=== PATIENT | female | born 1935 | race Caucasian/White ===

== ENCOUNTER 2017-01-13 17:30 | Inpatient (IN) | payer MEDICARE, BC ==
[~2017-01-13] VITALS: Ht 160 cm; Wt 80.3 kg
--- NOTE | ~2017-01-13 | CON ---
PATIENT'S NAME: ASHLEY PAREDES [facility] AGE: 81 Y [address] ROOM: [place] [address] [facility]ATION: [facility] ADMIT DATE: 01/13/2017 Consultation DISCHARGE DATE: FAMILY PHYSICIAN: Harley Rodriguez MD ATTENDING PHYSICIAN: Kevyn Watkins REFERRING PHYSICIAN: KEYONA DELAROSA MD CHIEF COMPLAINT: I was asked to evaluate patient with thrombocytopenia for further evaluation and treatment. HISTORY OF PRESENT ILLNESS: Ashley Paredes is an 81-year-old female, who was transferred from [place] to [facility] on 01/13/2017 for further evaluation of stroke symptoms with confusion, dysarthria, in the setting of abdominal distress and diarrhea, felt to be related to dehydration, and she was admitted to [place], and a CT scan at that time did demonstrate low-density lesion in the right cerebellum concerning for stroke, and because of this, she was transferred. Since being admitted to the hospital, she had been treated for UTI, and she has been feeling better over the days. She has previously been on anticoagulation for atrial fibrillation and cardiac stents which were performed in September and because of noted thrombocytopenia, consideration for changing anticoagulation from Plavix to aspirin were considered. Additionally, workup was requested to see if any etiology could be identified. During this hospital stay, the patient also had a CT scan of the abdomen and pelvis which demonstrated a questionable left renal lesion of 4 x 5 cm concerning for infection versus tumor, and a CT angiogram which was negative without pulmonary embolism. Of note, the patient was noted to have some bright red blood per rectum and recommendations for outpatient evaluation has been placed. PAST MEDICAL HISTORY: Includes paroxysmal atrial fibrillation, on chronic anticoagulation; coronary artery disease, status post stenting in September 2016; hypertension; chronic renal disease stage 3; hyperlipidemia; gastroesophageal reflux disease; osteoarthritis; hyperuricemia; and insomnia. HOME MEDICATIONS: Include: 1. Allopurinol. 2. Eliquis. 3. Lotensin. 4. Zebeta. 5. Celebrex. 6. Plavix. 7. MegaRed. PATIENT'S NAME: ASHLEY PAREDES [facility] AGE: 81 Y [address] ROOM: [place] [address] LOCATION: [facility] ADMIT DATE: 01/13/2017 Consultation DISCHARGE DATE: FAMILY PHYSICIAN: Harley Rodriguez MD ATTENDING PHYSICIAN: Kevyn Watkins 8. Melatonin. 9. Multivitamin. 10. Simvastatin. 11. In the hospital, she was placed on Zosyn. FAMILY HISTORY: The patient's father had passed from cancer at 66 years of age. Mother passed of an RI at 79 and brother at 67 with COPD. SOCIAL HISTORY: The patient lives in [place]. She does not drink, does not smoke, and she is . PHYSICAL EXAMINATION: VITAL SIGNS: Blood pressure 139/63, pulse 77, respirations 12, and a temp of 98.5. GENERAL: The patient appears quite comfortable. No apparent distress. Speech seems to be normal. HEENT: Pupils are equal, round, and reactive to light. Extraocular muscles are intact. Oral mucosa is moist and pink without lesions. NECK: Without adenopathy as is the axillary region. HEART: Regular without significant murmurs appreciated. LUNGS: Clear to auscultation without wheezing, without rhonchi. ABDOMEN: Bowel sounds are positive. No gross organomegaly and no masses appreciated. EXTREMITIES: Without cyanosis, clubbing, or edema. LABORATORY DATA: Includes a CBC with a white blood cell count 6, hemoglobin 8.5, and platelets 122,000. Electrolytes were normal with a BUN and creatinine of 14 and 0.9 respectively, albumin 2.4, total protein 6.6, and globulin 4.2. Alkaline phosphatase was 73, AST 40, and ALT was 37. Iron studies included iron of 22, percent saturation of 11, TIBC of 194, and a ferritin of 201. Of note, on admission, the hemoglobin was 9 and platelets were 65,000 and have steadily improved since that time. IMPRESSION AND PLAN: Ashley Paredes is an 81-year-old female, admitted with a recent stroke as well as urinary tract infection, noted to have thrombocytopenia and anemia during her hospital stay. I will add vitamin B12, folate, and TSH for further evaluation of the anemia as well as the thrombocytopenia, but the anemia appears to be from the iron studies most consistent with mild iron deficiency as well as anemia of chronic disease. She has been noted to have bright red blood per rectum and reportedly has hemorrhoids which may account for this and has been undergoing GI evaluation as an outpatient. The thrombocytopenia may be PATIENT'S NAME: ASHLEY PAREDES [facility] AGE: 81 Y [address] ROOM: [facility] [place], [place] [address] [place] [facility] [place]MIT DATE: 01/13/2017 Consultation DISCHARGE DATE: FAMILY PHYSICIAN: Harley Rodriguez MD ATTENDING PHYSICIAN: Kevyn Watkins related to vitamin deficiencies and more alternatively to the recent urinary tract infection. The platelets have been improving steadily since admission and my thoughts would be to follow her up in several weeks in my [facility] in [place] to verify resolution of the thrombocytopenia. If persistent thrombocytopenia is noted, then bone marrow biopsy certainly may be reasonable, and we will discuss that with her at that time. MD ERICA MCMAHON/anu /[id number] d: 01/19/17 0153 t: 02/11/17 1101, CONSULTATION REPORT
--- NOTE | ~2017-01-13 | CON ---
PATIENT'S NAME: EVANGELINA PAREDES [facility] AGE: 81 Y [address] ROOM: [address] [address] LOCATION: [facility] ADMIT DATE: 01/13/2017 Consultation DISCHARGE DATE: FAMILY PHYSICIAN: Harley Rodriguez MD ATTENDING PHYSICIAN: Kevyn Watkins REFERRING PHYSICIAN: KEYONA DELAROSA MD REFERRING PHYSICIAN: Dr. Hsu. REASON FOR CONSULT: Elevated troponin and coronary artery disease. HISTORY OF PRESENT ILLNESS: Ms. Paredes is a pleasant 81-year-old female with history of coronary artery disease, status post coronary artery bypass graft about 10 years ago and status post percutaneous intervention about 3 months ago. The patient stated that she had been having diarrhea for 3 days with 15 to 20 loose stools per day. The patient stated that she was briefly unresponsive and she was taken to local hospital in [place]. She was given IV fluids, following which she recovered her consciousness and then she was transferred here for further management. The patient stated that she has been feeling shortness of breath for last 3 months and she had percutaneous intervention done at [facility]. She denied any improvement in symptoms following the percutaneous intervention and continues to remain short on breath on exertion. The patient stated that presently, she gets short of breath on walking about 1 to 1-1/2 block with no recent change in symptoms. She denied any chest pain. Has dry cough. No history of fever. Denied any urinary symptoms. REVIEW OF SYSTEMS: The patient has chronic mild diminution vision with no recent change. No history of dysphagia. No history of nausea or vomiting. No history of fever. No history of expectoration though she has dry cough. History of diarrhea is present. No history of urinary symptoms. The patient stated she is not very active physically; however, she takes care of herself and does bowling and plays cards. PAST MEDICAL HISTORY: The patient has past medical history of coronary artery disease, status post coronary artery bypass graft about 10 years ago; status post permanent pacemaker placement 1 year ago, status post percutaneous intervention of right coronary artery about 3 months ago, history of cholecystectomy and appendectomy and history of hip replacement. PERSONAL HISTORY: Nonsmoker. Nonalcoholic. PATIENT'S NAME: EVANGELINA PAREDES [facility] AGE: 81 Y [address] ROOM: [id number] [place], [place] [address] LOCATION: [facility] ADMIT DATE: 01/13/2017 Consultation DISCHARGE DATE: FAMILY PHYSICIAN: Harley Rodriguez MD ATTENDING PHYSICIAN: Kevyn Watkins FAMILY HISTORY: Her mother had coronary artery disease. SOCIAL HISTORY: The patient lives with her grandson. CURRENT MEDICATIONS: Her current medications include: 1. Pantoprazole. 2. Bisoprolol 20 mg daily. 3. Lisinopril 5 mg daily. 4. Allopurinol 300 mg daily. 5. Apixaban 5 mg b.i.d. 6. Ceftriaxone. 7. Plavix 75 mg p.o. daily. 8. Atorvastatin 40 mg daily. PHYSICAL EXAMINATION: GENERAL: On examination, she is awake, alert, and oriented and in no distress. VITAL SIGNS: Her pulse rate is 71 beats per minute, respiratory rate 18 per minutes, temperature 98.3, blood pressure 103/58. HEENT: Her head is atraumatic and normocephalic. Tongue is moist. NECK: No significant jugular venous distention is present. CARDIOVASCULAR: S1 and S2 are audible. They are irregular in rate and rhythm. Grade 3/6 ejection systolic murmur is audible in the left parasternal area. RESPIRATORY: Bilateral vesicular breath sounds are audible. Occasional rhonchi are audible. ABDOMEN: Abdomen is soft and nontender. Bowel sounds are present. EXTREMITIES: Showed bilaterally no significant pedal edema. NEUROLOGIC: The patient is awake, alert, and oriented. SKIN: Skin is warm and dry. LABORATORY DATA: Sodium 140, potassium of 3.1, chloride 108, CO2 21, glucose 106, calcium 7.9, BUN 33, creatinine 1.1, albumin 2.4, AST 28, ALT 20, total cholesterol 70, triglycerides 165, LDL 22, CPK 76, CK-MB 1.9. First set of CPK was 119, second 81, third 76. Serial troponins were 0.308, 0.326, and 0.255. CBC: White blood cell count 8.4, hemoglobin 9, hematocrit 28, platelet count 59. EKG showed atrial pacing at 70 beats per minute. T-wave inversion in anterior leads and lead III and AVF. No old EKG's had available at the present time to compare. ASSESSMENT: PATIENT'S NAME: BETHELEVANGELINA [facility] AGE: 81 Y [address] ROOM: [id number] [place], [place] [address] LOCATION: [facility] ADMIT DATE: 01/13/2017 Consultation DISCHARGE DATE: FAMILY PHYSICIAN: Harley Rodriguez MD ATTENDING PHYSICIAN: Kevyn Watkins 1. Coronary artery disease, status post coronary artery bypass grafting and status post percutaneous intervention of right coronary artery. 2. Elevated troponin. We will continue medical therapy with Plavix, statin, and beta blockers. In view of atrial fibrillation, we will continue with Eliquis; however since the patient also has thrombocytopenia, she needs to be watched very closely for any bleeding. The patient has mild elevation in troponin with normal CPK, and CK-MB. Her presentation is not suggestive of acute coronary syndrome. Mild elevation in troponin could be secondary to her renal impairment as well as demand-supply mismatch. In view of chronic dyspnea, please consider obtaining pulmonary function tests. The patient stated that she had dyspnea even prior to her stent placement with no significant improvement or change in symptoms following stent placement. The patient is also diagnosed with renal mass with unclear etiology. Management per Urology. The patient also has change in mental status which could be secondary to dehydration due to severe persistent diarrhea. She is being followed by Neurology for the same. PLAN: We will watch her on telemetry. Continue medical therapy and obtain her cardiology records for review. We will follow the patient along with you. The plan of care was discussed with the hospitalist team. Thank you for allowing us in taking part in the care of this pleasant patient. The plan of care was discussed with nursing as well as the patient and her daughter. We will replace potassium in view of hypokalemia. MD RAMON BARCENAS/nataliel /[id number] d: 01/14/172235 t: 02/01/171930, CONSULTATION REPORT
--- NOTE | ~2017-01-13 | DS ---
PATIENT'S NAME: EVANGELINA PAREDES [facility] AGE: 81 Y [address] ROOM: [place] [address] LOCATION: [facility] ADMIT DATE: 01/13/2017 Discharge Summary DISCHARGE DATE: 01/19/2017 FAMILY PHYSICIAN: Harley Rodriguez MD ATTENDING PHYSICIAN: Kevyn Watkins ATTENDING PHYSICIAN: Berny Horton MD FINAL DIAGNOSES: 1. Escherichia coli urinary tract infection. 2. CVA, likely chronic. 3. Bright red bleeding per rectum, resolved. 4. Acute blood loss anemia, resolved. 5. Thrombocytopenia, unclear etiology. 6. Paroxysmal atrial fibrillation. 7. Long-term anticoagulation. 8. Hypertension. 9. Left renal mass, under evaluation. 10. Nocturnal hypoxemia. 11. Coronary artery disease, status post recent stent. CONSULTATIONS: 1. Cardiology, Dr. Sams. 2. Neurology, Dr. Boggs. 3. GI, Dr. Will. 4. Urology, Dr. Salcedo. PROCEDURES: None. REASON FOR ADMISSION: This is an 81-year-old female, who presented at an outlying facility with an abnormal CT scan with a concern for subacute ischemic stroke. She was found to have slight dysarthria and confusion at that point of time. The CT scan showed that the patient had subacute ischemic stroke in the right cerebellum. She was then transferred to [facility]. Please see Dr. Watkins's admission H and P for further details. DIAGNOSTIC STUDIES: While at [facility], a transthoracic echocardiogram was done for stroke workup and showed normal left ventricular contractility with ejection fraction of 60%-65%, moderate to severe mitral annular calcification was noted. Aortic valve was severely sclerotic, mild tricuspid regurgitation and mild pulmonary hypertension, 45 mmHg RVSP was detected, ascending aorta mildly dilated. The patient had a bedside spirometry study that showed no airflow limitation and no significant bronchodilator response. The patient also had overnight pulse ox study and was found to have significant nocturnal hypoxia and was qualified for PATIENT'S NAME: EVANGELINA PAREDES [facility] AGE: 81 Y [address] ROOM: [place] [address] [facility] ADMIT DATE: 01/13/2017 Discharge Summary DISCHARGE DATE: 01/19/2017 FAMILY PHYSICIAN: Harley Rodriguez MD ATTENDING PHYSICIAN: Kevyn Watkins supplemental oxygen as per Medicare criteria. Sleep study is recommended. Lactate 1.1 on admission. Serial Accu-Cheks were done and were in the range of 99 to 202. Cardiac enzymes were done on admission: CPK was normal; troponin I 0.308 on admission, subsequently was trending down and was 0.255; proBNP 3771 on admission. Serial CBCs showed essentially normal white count. The patient's hemoglobin was 9.2 on admission and 8.7 at discharge. The patient had unexplained thrombocytopenia. Platelet count on admission was 59, by the time of discharge was 164 and normal with no intervention. Serial BMPs were done. Potassium was 3.1 on admission, was supplemented and was stable at 4.1 at the time of discharge. Kidney function tests were normal. Liver function tests were normal as well. LDH 187. Mag 2.3. Lipid panel showed total cholesterol 70, triglycerides 165, HDL 15, LDL 22. UA showed moderate bacteria with moderate yeast. On admission, urine creatinine random 79, urine protein random 68.2. Folate level 35.0, vitamin B12 944, ferritin level 201.2, haptoglobin level 311, serum iron 22, TIBC 194, percent saturation 11. TSH 2.42. Procalcitonin level 98.55 on admission. Chest x-ray was done on admission for cough and showed cardiac silhouette, somewhat enlarged with prominence of the central pulmonary vessels and perihilar interstitial markings suggesting interstitial edema and only CHF. No focal infiltrate, pleural effusion, or pneumothorax identified. Left-sided pacer is stable. The patient underwent a repeat CT head for possible stroke and showed periventricular small vessel ischemic changes, an 18 mm stable rounded area of low attenuation within the mid right jai-cerebellum was noted likely reflecting subacute or chronic ischemia and no evidence of intracranial hemorrhage and no significant interval change was noted. The patient underwent a carotid Doppler study that showed no significant stenoses bilaterally. Official read is pending at this point of time in the system. C. diff test was negative. Stool culture was negative. Blood culture showed no growth. HOSPITAL COURSE: This is an 81-year-old female, who presented to an outlying facility with diarrhea. The patient was evaluated. She was found to have subacute ischemic stroke in the right jai-cerebellum area. She was also having slight dysarthria and confusion at that point of time. The patient was transferred to [facility]. After admission to [facility], the patient was placed on the stroke pathway. Neurology, Dr. Boggs was consulted. For her stroke, the patient underwent a stroke workup based on Dr. Boggs recommendation. She underwent a repeat CT head and findings are as above. Dr. Boggs thought that this was likely a chronic stroke. The patient was placed on aspirin and statin, which she was already on. Initially, the patient was on Plavix, however, because of concern for thrombocytopenia, Plavix was discontinued based on Cardiology's recommendations. The patient PATIENT'S NAME: EVANGELINA PAREDES [facility] AGE: 81 Y [address] ROOM: [id number] [place] [id number] LOCATION: [facility] ADMIT DATE: 01/13/2017 Discharge Summary DISCHARGE DATE: 01/19/2017 FAMILY PHYSICIAN: Harley Rodriguez MD ATTENDING PHYSICIAN: Kevyn Watkins did not have any neurologic deficits. She underwent Physical Therapy and Speech Therapy evaluation. She continued to do well and was ambulating with the help of a walker. Dr. Boggs did not recommend any further imaging studies. She underwent a carotid Doppler study that showed no significant stenosis. An echocardiogram was done and findings are as above as part of the stroke pathway protocol. The patient had UTI. She underwent evaluation. Urine cultures from the referral hospital were obtained. The patient was placed on Zosyn during this admission. She completed a 5-day course of Zosyn. Antibiotic was discontinued at the time of discharge. She did not have any urine trouble during this admission. The patient had GI bleed. She had lower GI bleed and had bright red bleeding per rectum. GI was consulted. The patient's H and H were checked on regular basis; however, she did not have any drop in her hemoglobin during this admission. GI recommended colonoscopy, but the patient refused. She stated that she will follow up with her regular physician and would discuss with him regarding colonoscopy. She refused a colonoscopy, family was aware of this. This was likely thought to be hemorrhoidal bleed. Her Plavix was held. Her Eliquis was held as well for a couple of days and then restarted. Upon restarting her Eliquis, the patient did not have any more bright red bleeding per rectum. Her hemoglobin stayed stable. She was then discharged on Eliquis. No further workup was done since the patient refused workup at [facility]. The patient had a left renal mass, that was noted on a prior CT scan at the referral hospital. Urology, Dr. Salcedo, was consulted. He recommended surveillance for the left renal mass, and he will follow up with the patient in [facility]. The patient also had thrombocytopenia, that was of unclear etiology. Her Plavix was stopped because of increased risk of bleeding. Cardiology recommended that the Plavix be stopped, and the patient will be placed on aspirin. She is also on Eliquis. After stopping the Plavix, the patient's platelets rebounded and was stable at the time of discharge. Dr. Read, Hematology-Oncology, followed up with the patient, and the patient will follow up with Dr. Read in [facility] in 3 weeks' time. Plan is to do a bone marrow biopsy if her thrombocytopenia does not resolve or recurs. The patient had a trend ox study done during this admission and was found to qualify for home O2 at night. She will need a sleep study as an outpatient as well. The patient was recommended an outpatient colonoscopy, and she stated that she PATIENT'S NAME: EVANGELINA PAREDES [facility] AGE: 81 Y [address] ROOM: [address] [place] [id number] LOCATION: [facility] ADMIT DATE: 01/13/2017 Discharge Summary DISCHARGE DATE: 01/19/2017 FAMILY PHYSICIAN: Harley Rodriguez MD ATTENDING PHYSICIAN: Kevyn Watkins will undergo a colonoscopy with her primary care physician. Family is updated by me. The patient continued to do well, and she was discharged and asked to follow up with her primary care physician. DISCHARGE INSTRUCTIONS: The patient discharged on a cardiac diet. Activities as tolerated. She is advised to use a walker for assistance. Follow up with Cardiology, Dr. Thayer, in 1 week's time. Please note that the patient's Plavix has been stopped by Cardiology during this admission. Follow up with Dr. Read, Hematology-Oncology, in [place] in 3 weeks' time for evaluation of thrombocytopenia. Follow up with Dr. Salcedo in [place] [facility] in 3 months' time. The patient to get a renal ultrasound several days prior to follow up for left renal mass. Primary care physician to arrange for that. Follow up with Neurology at [facility] in 1 months' time. Follow up with PCP in 3-4 days' time. PCP to check a CBC and a CMP. The patient is advised to use O2 at h.s. 2 L/minute through nasal cannula. RT to arrange for O2. Outpatient physical therapy and occupational therapy to evaluate and treat as indicated. The patient needs a colonoscopy as an outpatient with her primary care physician. DISCHARGE MEDICATIONS: 1. Aspirin 81 mg p.o. daily, new medication. 2. Allopurinol 300 mg p.o. daily. 3. Eliquis 5 mg p.o. b.i.d. 4. Lipitor 40 mg p.o. daily, new medication. 5. Zebeta 20 mg p.o. daily. 6. Lotensin 5 mg p.o. daily. 7. Multivitamin 1 tablet p.o. daily. 8. Melatonin 3 mg p.o. q.h.s. p.r.n. insomnia. During this admission, the patient's Plavix was discontinued by Cardiology. BERNY HORTON MD MT/modl /[id number] CC: MD YVONNE Marie MD d: 01/20/17 0332 t: 01/22/17 1549, DISCHARGE SUMMARY
--- NOTE | ~2017-01-13 | CON ---
PATIENT'S NAME: ASHLEY PAREDES [facility] AGE: 81 Y [address] ROOM: G6218 [place], [place] [address] LOCATION: [facility] ADMIT DATE: 01/13/2017 Consultation DISCHARGE DATE: FAMILY PHYSICIAN: Harley Rodriguez MD ATTENDING PHYSICIAN: Kevyn Watkins DATE OF CONSULTATION: 01/14/2017 REFERRING PHYSICIAN: KEYONA DELAROSA MD TIME SEEN: 11:30 a.m. HISTORY OF PRESENT ILLNESS: Ms. Paredes is a delightful 81-year-old female patient, who lives in her house in [place]. She also has some friends and family member who lives with her. She is frequently watched over during the course of the week. The patient is otherwise active, takes care of her own affairs, does her checkbook, goes out shopping frequently and goes bowling. She was in her usual state of health until she started to have much more diarrhea than usual. This was not a new issue for her. However, she did get weak and much more tired and family thought that she was probably dehydrated. Even noticed that she was having a bit of potential slurring of her speech but not overly deferversed that this was an acute event. We did not notice any problems with aphasia but they thought that she was a bit slow to answer some questions. They took her to the [facility] where they gave her IV fluid rehydration. She did make a good recovery. However, CAT scan of the brain was done that showed some very small finding in the right cerebellar hemisphere. JOSE measured only 1.5 cm and probably was not suggestive of a new stroke but possibly either a very old infarct or even a small cystic lesion. From a standpoint of any new neurologic symptoms, the patient and the family denies that she had difficulty with her walking nor difficulty with chewing, swallowing, or manipulating her arms or legs. They denied that she had any vertigo. The daughter states that approximately 1 year ago, she had some new teeth that was made for her and they thought that she had some slurring of the speech and they pushed it up to that, but it is possible at that time she may be had a small stroke event. Certainly, the family denies any new acute onset of neurologic issues such as a gait disturbance, weakness, numbness. The patient here in the hospital, has been monitored and seen by speech therapy and physical therapy. She is doing very well. She is able to answer all questions appropriately. She is currently being treated for somewhat resistant urinary tract infection with ceftriaxone. PRIOR MEDICAL HISTORY: History of hypertension, GERD, atrial fibrillation for which she is on chronic anticoagulation, dyslipidemia which is well controlled, has a permanent PATIENT'S NAME: ASHLEY PAREDES [facility] AGE: 81 Y [address] ROOM: [address] [place] [id number] LOCATION: [facility] ADMIT DATE: 01/13/2017 Consultation DISCHARGE DATE: FAMILY PHYSICIAN: Harley Rodriguez MD ATTENDING PHYSICIAN: Kevyn Watkins pacemaker in place. CURRENT MEDICATIONS: Include: 1. Multivitamin daily. 2. Lisinopril 5 mg daily. 3. Allopurinol 300 mg daily. 4. Apixaban 5 mg twice a day. 5. Ceftriaxone 1 g twice a day. 6. Plavix 75 mg p.o. daily. 7. Atorvastatin started on this admission at 40 mg daily. 8. She was previously on simvastatin 40 mg daily. It should be noted that at home; she takes celecoxib for chronic [id number] mg daily. FAMILY HISTORY: Little is known. SOCIAL HISTORY: The patient denies any smoking or alcohol history. She is an active female. She participates in all activities in her day cooking and cleaning as well as going out bowling. ALLERGIES: THERE ARE NO LISTED DRUG ALLERGIES. REVIEW OF SYSTEMS: The patient presents with weakness and some very mild confusion in the setting of poor fluid intake. She had some associated diarrhea. She is found to have urinary tract infection, which is somewhat resistant. There is a questionable history of recurrent diarrhea as well. The rest of the review of systems currently is within normal limits. Cardiac roberts, the patient comes in with normal sinus rhythm on EKG, 76 beats per minute in paced rhythm. There is a noted elevation in troponin to 0.326. PHYSICAL EXAMINATION: NEUROLOGIC: The patient is alert and oriented. Her speech is clear. Her mentation is excellent. She is alert and oriented to self situation. She follows all commands such as cross-body commands, right and left discrimination. She has no two point discrimination difficulty. She has normal ability to name objects and parts of objects easily. Testing of coordination on [id number]; I did not appreciate any dysmetria. Rapid alternating hand movements were completely normal. There was no rebound affect. Power was symmetric and normal at 505 grade in the upper and lower extremities. I did not appreciate any pronator drift. On cranial nerve exam, PATIENT'S NAME: ASHLEY PAREDES [facility] AGE: 81 Y [address] ROOM: [place] [address] LOCATION: [facility] ADMIT DATE: 01/13/2017 Consultation DISCHARGE DATE: FAMILY PHYSICIAN: Harley Rodriguez MD ATTENDING PHYSICIAN: Kevyn Watkins also there is no visual disturbance such as diplopia. There is normal facial symmetry and sensation. NECK: Supple on flexion and extension. The patient stood up by the bedside. She is able to ambulate and she has a normal based gait. Negative Romberg. IMPRESSION: Ms. Ashley Paredes has made a good recovery with fluid rehydration in the setting of diarrhea as well as a clear urinary tract infection. Her mentation is excellent. She is back to her baseline, which is quite good. She does not display any evidence of dementia as far as I could tell. She does have a history of atrial fibrillation, but I do not see any evidence on the scan of any prior stroke. There is a small area that is very circular in the area of the right cerebellar hemisphere that is probably old. PLAN: Plan will be to treat the patient, to continue her course for antibiotics for urinary tract infection and also test her stool for C. difficile colitis. Would repeat a CAT scan here in the hospital just to see if there was any change in the very small area of a mild hypodensity in the cerebellum, could certainly be followed up as an outpatient in approximately six months to a year as well if there was any change. Neurologic perspective, the patient has no signs or symptoms suggestive of any cerebellar infarction. She is doing well. She has no slurring of her speech and there was no dysmetria. On exam, her gait is normal. Neurology will follow up after the patient's re-scan tomorrow. MD JHONNY KABA/anu /[id number] d: 01/14/17 1906 t: 01/22/17 2210, CONSULTATION REPORT
--- NOTE | ~2017-01-13 | PUL ---
PATIENT'S NAME: EVANGELINA PAREDES [facility] AGE: 81 Y [address] ROOM: [facility] [place], [place] [address] LOCATION: [facility] ADMIT DATE: 01/13/2017 Pulmonary DISCHARGE DATE: FAMILY PHYSICIAN: Harley Rodriguez MD ATTENDING PHYSICIAN: Kevyn Watkins NAME OF PROCEDURE: Bedside Spirometry DATE OF PROCEDURE: January 14, 2017 TECH: JENNYFER Currie REASON FOR EXAM: Shortness of breath RESULTS: FVC was 1.96 liters which is 79% of predicted and normal, FEV1 was 1.66 liters which is 90% of predicted and normal, and FEV1/FVC was 84.4% and normal. The flow volume curve did not reveal any significant airflow limitation. After bronchodilator administration FVC decreased to 1.78 liters and FEV1 decreased to 1.65 liters. FEV1/FVC was 93%. Please note that the was bronchodilator measurements were done only one time as the patient has had heart rate was 165. PHYSICIAN INTERPRETATION: The patient has no airflow limitation and no significant bronchodilator response. The results have to be interpreted with care, as the patient had only one acceptable maneuver for post bronchodilator test spirometric values. MD MAY PITTS/aidee /[id number] dtt: 01/17/17 1313 , LOUIE LÓPEZ dtd: 01/16/17 1341
--- NOTE | ~2017-01-13 | ECHO ---
Transthoracic Echocardiography Report (TTE) Demographics Patient Name EVANGELINA PAREDES Date of Study 01/15/2017 Patient Number [id number] Visit Number [id number] Date of 1935 Room Number G6218 Gender Female Number Age 81 year(s) Referring Jennifer Claudio Drop Crew Laborer Miroslava Posey RVT, Physician MD YELENA Hsu Physician Interpreting Ivanna Richey Construction Foreman Physician Supervising Ordering Physician MD/MLP Nurse Stress Waste Management Engineer Conclusions Contractility Score Summary Normal Left Ventricular contractility was noted. Summary The estimated left ventricular ejection fraction is 60-65%. Mild concentric left ventricular hypertrophy. The right atrium is mildly dilated. Moderate to severe mitral annular calcification. Mild mitral regurgitation by color Doppler. The aortic valve is severely sclerotic. There is mild aortic stenosis The peak velocity is 2.28 m/s, the mean gradient is 13 mmHg, and the valve area based on the continuity equation is 1.65 cm2. Mild tricuspid regurgitation by color Doppler. There is mild pulmonary hypertension. The estimated pulmonary pressure (RVSP) is 45 mmHg. The ascending aorta appears mildly dilated. The maximum diameter measures 3.8 cm. Procedure Type of Study TTE procedure:2D Echocardiogram. Procedure Date Date: 01/15/2017 Start: 07:17 AM Study Location: Inpatient Portable Technical Quality: Adequate visualization Additional Indications:Hx of Atrial Fibrillation Appropriate Use Criteria: 8 Patient Status: Routine Rhythm: Paced HR: 70 bpm BP: 126/65 mmHg M-Mode/2D Measurements LV Diastolic Dimension: 4.01 cm LV Systolic Dimension: 2.45 cm LV Septum Diastolic: 1.19 cm LV PW Diastolic: 1.22 cm AO Root Dimension: 2.68 cm Cardiac Output: 4.97 l/min AV Cusp Separation: 1.6 cm RV Diastolic Dimension: 4.24 cm LA volume: 46 ml LVOT: 1.8 cm RV Base: 3.28 cm LVOT VTI: 27.9 cm RV Mid: 3.42 cm LV Stroke volume: 70.96 ml TAPSE: 1.61 cm TDI-S': 12.4 cm/s Doppler Measurements AV Peak Velocity: 2.28 m/s MV Peak E-Wave: 1.43 m/s AV Peak Gradient: 20.79 mmHg MV Peak A-Wave: 1.06 m/s AV Mean Gradient: 13 mmHg MV E/A Ratio: 1.35 LVOT Peak Velocity: 1.25 m/s MV P1/2t: 66 msec TR Gradient:36.48 mmHg PV Peak Velocity: 1.14 m/s Estimated RAP:5 mmHg PV Peak Gradient: 5.2 mmHg Estimated RVSP: 41 mmHg Estimated PASP: 41.48 mmHg E' Septal Velocity: 0.07 m/s A' Septal Velocity: 0.08 m/s E' Lateral Velocity: 0.12 m/s A' Lateral Velocity: 0.08 m/s Findings Left Ventricle Mild concentric left ventricular hypertrophy. Right Ventricle Mildly dilated right ventricle at the basal portion. Normal right ventricular function. Device lead noted in the right ventricle. Left Atrium The left atrium is moderately dilated. There is no evidence of patent foramen ovale or atrial septal defect by color Doppler. Right Atrium The right atrium is mildly dilated. IVC measures 2.16 cm with inspiratory collapse. Device lead seen in the right atrium. Mitral Valve Moderate to severe mitral annular calcification. Mild mitral regurgitation by color Doppler. Aortic Valve The aortic valve is severely sclerotic. There is mild aortic stenosis by the Continuity Equation. The peak velocity is 2.28 m/s, the mean gradient is 13 mmHg, and the valve area based on the continuity equation is 1.65 cm2. There is trivial aortic regurgitation by color Doppler. Tricuspid Valve Mild tricuspid regurgitation by color Doppler. There is mild pulmonary hypertension. The estimated pulmonary pressure (RVSP) is 45 mmHg. Pulmonic Valve Normal pulmonic valve structure and function. Pericardial Effusion No evidence of pericardial effusion. Miscellaneous The ascending aorta appears mildly dilated. The maximum diameter measures 3.8 cm. Pleural Effusion No evidence of pleural effusion. Contractility Score LV regional wall motion:(0-Non visualized 1-Normal 2-Hypokinesis 3-Akinesis 4-Dyskinesis 5-Aneurysm) Signature dtt: IVETH PERES dtd: 01/15/17 07 Physician Self Edit
--- NOTE | ~2017-01-13 | PUL ---
PATIENT'S NAME: EVANGELINA PAREDES [facility] AGE: 81 Y [address] ROOM: [address] [address] LOCATION: [facility] ADMIT DATE: 01/13/2017 Pulmonary DISCHARGE DATE: 01/19/2017 FAMILY PHYSICIAN: Harley Rodriguez MD ATTENDING PHYSICIAN: Kevyn Watkins NAME OF PROCEDURE: Overnight Pulse Oximetry DATE OF PROCEDURE: January 17 to January 18, 2017 REASON FOR EXAM: Nocturnal hypoxemia RESULTS: The test was performed on room air. The recording time was 8 hours, 37 minutes, and 12 seconds, with a recording time of 8 hours, 10 minutes, and 16 seconds. The highest pulse was 130, lowest pulse was 68, with mean pulse of 73. The highest SpO2 was 98%, lowest SpO2 was 70%, with a mean SpO2 of 88.1%. The patient spent 4 hours, 30 minutes, and 40 seconds with SpO2 less than 89%, representing 55.2% of the total sleep time. The desaturation event index was significantly elevated at 53.5. PHYSICIAN INTERPRETATION: The patient has evidence of significant nocturnal hypoxia and would qualify for supplemental oxygen as per Medicare criteria. However because of the severity of her nocturnal hypoxia with an elevated desaturation event index a sleep study is recommended at this time. LOUIE LÓPEZ MD RFCora/aidee /[id number] dtt: 01/19/17 1622 , LOUIE LÓPEZ dtd: 01/19/17 1310
--- NOTE | ~2017-01-13 | CON ---
PATIENT'S NAME: EVANGELINA PAREDES [facility] AGE: 81 Y [address] ROOM: G6218 [place], [place] [address] LOCATION: [facility] ADMIT DATE: 01/13/2017 Consultation DISCHARGE DATE: FAMILY PHYSICIAN: Harley Rodriguez MD ATTENDING PHYSICIAN: Kevyn Watkins DATE OF CONSULTATION: 01/14/2017 REFERRING PHYSICIAN: KEYONA DELAROSA MD CHIEF COMPLAINT: Left renal mass. HISTORY OF PRESENT ILLNESS: The patient is a pleasant 81-year-old female, who was transferred from [place] for further evaluation. She had been having some recent difficulty with diarrhea, dehydration, and recurrent urinary tract infection. During her workup, she underwent a CT scan of her abdomen and pelvis on January 13, 2017, with incidental findings including a 4.5 cm upper pole left anterior enhancing renal lesion. She denies any previous history of or knowledge of renal mass. Her serum creatinine level on January 13, 2017, was elevated at 1.8. She again reports history of recurrent urinary tract infection with symptoms including urinary frequency, but no dysuria. She had also had some confusion. The patient denies any history of nephrolithiasis. She does report a remote history of undergoing cystoscopy with urethral dilation by Dr. Gardner in the past. She denies any known family history of genitourinary malignancy including no family history of renal cell carcinoma. Most recent urine culture drawn on January 12, 2017, consistent with greater than 100,000 colony- forming units per mL of E. coli species, which was pretty much pansensitive; although resistant to ampicillin, carbenicillin, and Bactrim. It appears that Hospitalist Team has her on ceftriaxone, which the culture is sensitive to. The patient did note an episode yesterday of red tinged urine output. She has also had some difficulties with vaginal irritation and apparently is getting set up to see Dr. Higinio Zee with Gynecology for this. The patient has no further questions or concerns at this time. PAST MEDICAL HISTORY: 1. Gout history. 2. Hypertension. 3. Osteoarthritis. 4. Recurrent urinary tract infection. 5. Hyperlipidemia. 6. Coronary artery disease. 7. Atrial fibrillation. 8. Chronic kidney disease. 9. GERD. PATIENT'S NAME: PAREDES EVANGELINA E [facility] AGE: 81 Y [address] ROOM: [address] [address] LOCATION: [facility] ADMIT DATE: 01/13/2017 Consultation DISCHARGE DATE: FAMILY PHYSICIAN: Harley Rodriguez MD ATTENDING PHYSICIAN: Kevyn Watkins 10. Insomnia. PAST SURGICAL HISTORY: 1. Cystoscopy with urethral dilation with Dr. Gardner in the past. 2. Percutaneous coronary intervention with heart catheterization and stent placement in November 2016. FAMILY HISTORY: The patient denies any known family history of genitourinary abnormalities or malignancy. SOCIAL HISTORY: The patient lives in [place]. She has never smoked previously. She denies any current alcohol or illicit drug use. REVIEW OF SYSTEMS: A full 10+ point review of systems was performed with pertinent positive and negative findings include in the history of present illness. All other systems were reviewed and are otherwise negative. ALLERGIES: NO KNOWN DRUG ALLERGIES. MEDICATIONS: Please see hospitalization medication reconciliation. IMPRESSION: 1. Left renal mass. 2. Recurrent urinary tract infection. PLAN: I had a long discussion today with the patient regarding her findings of incidental left renal mass. We discussed different etiologies of these renal lesions including 20% of these lesions are benign, 60% relatively indolent renal cell carcinoma, and 20% potentially aggressive renal cell carcinoma. We also discussed treatment options for small renal lesions including surveillance, nephrectomy, partial nephrectomy, and thermal ablation. Other options to include consideration of a percutaneous renal mass biopsy. Given her age and multiple medical comorbidities, she may be a good candidate for surveillance and actually the patient was wanting to avoid any sort of interventions at this time and is fine with surveillance. We will plan to see her back for followup in Urology Clinic in 3 months from now with a repeat renal ultrasound to evaluate for any interval change in this lesion. At that time, we will also work with her on urinary tract infection prevention. At this time, there is no obvious source for persistent infection including no PATIENT'S NAME: EVANGELINA PAREDES [facility] AGE: 81 Y [address] ROOM: [address] [address] LOCATION: [facility] ADMIT DATE: 01/13/2017 Consultation DISCHARGE DATE: FAMILY PHYSICIAN: Harley Rodriguez MD ATTENDING PHYSICIAN: Kevyn Watkins urinary calculi. The patient's questions and concerns were addressed and she has no further at this time. Again, we will plan to see her back for followup as an outpatient in 3 months from now in my outreach clinic in [place]. KEYONA DELAROSA MD GP/anu /[id number] d: 01/14/17 1929 t: 01/15/17 1550, CONSULTATION REPORT
--- NOTE | ~2017-01-13 | HP ---
PATIENT'S NAME: EVANGELINA PAREDES [facility] AGE: 81 Y [address] ROOM: [id number] [place], [place] [address] LOCATION: [facility] ADMIT DATE: 01/13/2017 History & Physical DISCHARGE DATE: FAMILY PHYSICIAN: Harley Rodriguez MD ATTENDING PHYSICIAN: Kevyn Watkins DATE OF SERVICE: CHIEF COMPLAINT: Abnormal CT scan, concern for subacute ischemic stroke. HISTORY OF PRESENTING ILLNESS: This 81-year-old white female with previous history of paroxysmal atrial fibrillation, on long-term anticoagulation with , coronary artery disease and hypertension was transferred to [facility] from [place] with concern for development of subacute ischemic stroke in the right cerebellum. Briefly, she was taken to the emergency department in [place] yesterday with complaints of abdominal distress and diarrhea. She felt weak and dehydrated. She seemed to be confused and dysarthric at the point of her admission, but this was thought to be a part of the spectrum of her dehydration symptoms apparently. Her daughter relates that she has actually had episodes of dysarthria and confusion intermittently for several weeks. Over the course of the last night, she became more confused. This was thought to be secondary to medication effect. At some point, over the course of the day today, a CT scan of the head was performed. This demonstrated a low- density lesion in the right cerebellum concerning for stroke. I was requested to admit the patient here for definitive evaluation and management. Additionally, the patient underwent additional radiologic evaluation including CT angiogram of the chest to look for pulmonary embolism. This was apparently negative for PE. CT of the abdomen and pelvis was performed, and this showed left renal lesion. She did get treatment for pyuria, and cultures have yielded E. coli. Sensitivity reports are not available yet. Today, she reports feeling better. She denies headache but has had some headaches intermittently. She admits that her speech is a little "off," but blames this on her dentures apparently. She denies blurred vision or double vision. No difficulties with chewing or swallowing. She has been eating and drinking normally as of late. She did develop a little bit of nausea on the ride to [place] today. She denies rené abdominal pain. She had multiple loose stools over the course of the day yesterday, but only one stool today apparently. She denies dysuria, frequency, urgency, or hematuria. No numbness, tingling, or weakness in her extremities or any other associated physical or PATIENT'S NAME: EVANGELINA PAREDES [facility] AGE: 81 Y [address] ROOM: [address] [address] LOCATION: [facility] ADMIT DATE: 01/13/2017 History & Physical DISCHARGE DATE: FAMILY PHYSICIAN: Harley Rodriguez MD ATTENDING PHYSICIAN: Kevyn Watkins constitutional complaints. ALLERGIES: MORPHINE. ILLNESSES: 1. Paroxysmal atrial fibrillation, long-term anticoagulation with Eliquis. 2. Essential hypertension. 3. Chronic kidney disease, stage 3. 4. Hyperlipidemia. 5. Gastroesophageal reflux disease. 6. Osteoarthritis, generalized. 7. Hyperuricemia. 8. Coronary artery disease. 9. insomnia. CURRENT MEDICATIONS: 1. Allopurinol 300 mg p.o. daily. 2. Eliquis 5 mg p.o. b.i.d. 3. Lotensin 5 mg p.o. daily. 4. Zebeta 20 mg p.o. daily. 5. Celebrex 100 mg p.o. daily. 6. Plavix 75 mg p.o. daily. 7. MegaRed fish oil capsule daily. 8. Melatonin 3 mg p.o. q.h.s. 9. Multivitamin daily. 10. Simvastatin 40 mg p.o. q.h.s. FAMILY HISTORY: Significant for cancer in her father, who at the age of 66. Mother had an TN at the age 79. Her brother at the age of 67 from COPD. SOCIAL HISTORY: She is . Lives in [place]. She is a lifelong nonsmoker. No significant history of alcohol use. REVIEW OF SYSTEMS: As per HPI. All other organ systems reviewed and are negative. OBJECTIVE: VITAL SIGNS: Temperature 98, pulse 85, respirations 28, blood pressure 91/46, O2 saturation 93% on 2 L per nasal cannula. GENERAL: She is frail, anxious, but cooperative, lying in the bed, in no acute distress. SKIN: Supple, pink, warm, dry. No obvious rashes. PATIENT'S NAME: EVANGELINA PAREDES [facility] AGE: 81 Y [address] ROOM: [id number] [place], [place] [address] LOCATION: [facility] ADMIT DATE: 01/13/2017 History & Physical DISCHARGE DATE: FAMILY PHYSICIAN: Harley Rodriguez MD ATTENDING PHYSICIAN: Kevyn Watkins HEENT: Otherwise, normocephalic. Sclerae nonicteric. Pupils equal, round, and reactive to light and accommodation. Extraocular movements appear intact. Nasal turbinates normal in appearance. Oropharynx clear. Mucous membranes are pink and moist. NECK: Supple. No masses or adenopathy. No thyromegaly. No JVD. CHEST: Wall is symmetrical. HEART: Irregularly irregular with a grade 2 to 3 out of 6 systolic ejection murmur. LUNGS: Diminished at the bases. No wheezes or crackles are heard. ABDOMEN: Soft and obese. Diffusely tender but without guarding or rebound. No masses or hepatosplenomegaly. Bowel sounds are present. Diminished. and RECTAL: Not done. EXTREMITIES: Display trace to 1+ pitting edema. No cyanosis. NEUROLOGIC: Mentation is little slowed. Speech is dysarthric. Cranial nerves 2 through 12 appear otherwise intact. Sensation is normal. Strength is 5/5 bilaterally in upper and lower extremities. DTRs are 1 to 2+ roughly symmetrical. Gait is not observed. LABORATORY AND X-RAY DATA: CT scan of the head shows a 15 mm low-density lesion in the right cerebellum, subacute infarct versus neoplastic disease. CT scan of the chest per PE protocol is negative for PE. CT scan of the abdomen and pelvis shows a lobulated nodular enhancing lesion in the left kidney, consistent with infection versus tumor. ProBNP on 01/13/2017 was 906. Cardiac enzymes revealed a troponin elevated at 0.3, trending down from 0.81 on 01/12/2017; CPK was 222; CK-MB 2.8. D-dimer was elevated at 13.1. CBC today showed a white blood cell count 8.6, hemoglobin of 9.2, hematocrit 28.6, platelets 65. Chemistries revealed BUN and creatinine of 39 and 1.8 on 01/13/2017, sodium and potassium of 142 and 3.7, chloride and CO2 of 108 and 22.5, calcium was 8.1, glucose 125. AST and ALT of 42 and 19 respectively. Bilirubin 0.5. Urinalysis: Significant for greater than 100 wbc's per high-powered field, 20-50 rbc's. Urine culture shows greater than 100,000 colonies per mL of E. coli. Sensitivity is not available. ASSESSMENT AND PLAN: 1. Abnormal CT head, subacute ischemic infarct versus neoplasm. I discussed the case with Dr. Boggs, neurologist. We will admit per the stroke pathway. We will maintain her on her home regimen of Eliquis and Plavix for now but hold the Celebrex. Careful blood pressure management. We will also plan to continue with statin therapy. Deficits are relatively mild. I do not think that her expressive aphasia is consistent with the lesion demonstrated on CT. Unfortunately, MRI can not be obtained because she has a pacemaker. We will await Dr. Boggs's evaluation, recommendations, and probably follow this serially. Eventually may need to discuss it with PATIENT'S NAME: EVANGELINA PAREDES [facility] AGE: 81 Y [address] ROOM: [place] [address] LOCATION: [facility] ADMIT DATE: 01/13/2017 History & Physical DISCHARGE DATE: FAMILY PHYSICIAN: Harley Rodriguez MD ATTENDING PHYSICIAN: Kevyn Watkins Neurosurgery. 2. Acute kidney injury with chronic kidney disease, stage 3. She did get a significant contrast load. We will continue with careful IV fluid hydration therapy and monitor the trend. We will plan to repeat renal panel again in the morning. 3. Left renal mass. We will get Urology consult. Differential diagnosis includes infectious versus neoplastic causes. 4. Urinary tract infection. We will plan to continue with Rocephin for now. We will try to get culture and sensitivity report from [place]. 5. Expressive aphasia. Difficult to characterize. Plan to continue with routine stroke care. She is not a candidate for TPA given the suspicious nature of the lesion, subacute presentation, and concurrent anticoagulation treatment. 6. Paroxysmal atrial fibrillation, rate controlled, stable on Eliquis. Plan to continue that therapy. 7. Essential hypertension. Historically, well controlled. No changes for now and monitor. 8. Osteoarthritis, generalized. We will hold the Celebrex. Avoid any additional nonsteroidal antiinflammatory drugs. 9. Coronary artery disease, clinically asymptomatic and stable. She did have an elevated troponin I. This was reviewed with Dr. Thayer, horseradish maker, who felt that it was probably related to renal impairment. We will plan to trend enzymes for now and monitor. 10. Acute hypoxic respiratory failure. We will encourage good pulmonary hygiene. This could be related to a volume issue. We will plan to continue with IV fluids for tonight in light of her renal dysfunction, but watch her fluid volume balance closely. We will get echocardiography in the morning additionally. 11. Deep venous thrombosis prophylaxis. She is fully anticoagulated with Eliquis. MD COURT RUTLEDGE/modl /[id number] D: [id number] T: [id number] HISTORY & PHYSICAL
--- NOTE | ~2017-01-13 | CON ---
PATIENT'S NAME: PAREDESEVANGELINA [facility] AGE: 81 Y [address] ROOM: [address] [place], [place] [address] LOCATION: [facility] ADMIT DATE: 01/13/2017 Consultation DISCHARGE DATE: FAMILY PHYSICIAN: Harley Rodriguez MD ATTENDING PHYSICIAN: Kevyn Watkins DATE OF CONSULTATION: 01/15/2017 REFERRING PHYSICIAN: KEYONA DELAROSA MD REASON FOR CONSULTATION: Rectal bleeding. HISTORY OF PRESENT ILLNESS: The patient is an 81-year-old white female with past medical history significant for recent UTI and cardiac cath with stent 3 months ago who is in the hospital for workup of altered mental status. The patient is generally high functioning and lives in a home with other friends and family members. She was in her usual state of health until 2 days ago when she started to have some increased diarrhea and was noted at that time to be more tired than normal. The family thought she was maybe dehydrated and felt as though she was slurring her speech. At that time, she was taken to an outside facility and she was given IV fluid hydration and she seemed to recover well. A CAT scan of the brain was done at that time and it showed a small finding in the right cerebellar hemisphere concerning for stroke. It has since been determined this is more likely an old lesion, as the patient had no acute neurologic symptoms at the time of that exam. Also, on the workup, she was found to have a renal mass. The patient tells me that generally she has not had problems with diarrhea or constipation until recently. Some reports of the records indicate 10 stools a day. Per nursing today, she has only had 2 bowel movements. No watery diarrhea. There was some bright red blood seen around the stool. She denies having any melena, but does state that she has had bright red blood per rectum for at least 2 weeks, which she attributes to her hemorrhoids. She has never had a colonoscopy. Also, of note, she is on anticoagulation both Plavix and Eliquis. She denies any abdominal pain, nausea, or vomiting. PAST MEDICAL HISTORY: 1. Hypertension. 2. GERD. 3. AFib. 4. Hyperlipidemia. 5. Coronary artery disease, status post CABG, and then subsequently stent 3 months ago. PAST SURGICAL HISTORY: PATIENT'S NAME: [facility] AGE: 81 Y [address] ROOM: [address] [address] LOCATION: [facility] ADMIT DATE: 01/13/2017 Consultation DISCHARGE DATE: FAMILY PHYSICIAN: Harley Rodrgiuez MD ATTENDING PHYSICIAN: Kevyn Watkins 1. Coronary artery bypass graft 10 years ago. 2. Right coronary artery stent 3 months ago. 3. Cholecystectomy. 4. Appendectomy. 5. Hip replacement. SOCIAL HISTORY: Nonsmoker and nondrinker. No drug use. FAMILY HISTORY: There is no family history of colon cancer or liver disease. MEDICATIONS: Reviewed and see chart for details. Of note, the patient is on Eliquis and Plavix. ALLERGIES: NONE. REVIEW OF SYSTEMS: A 10-point review of systems negative other than mentioned in the HPI. PHYSICAL EXAMINATION: VITAL SIGNS: Temp 98.9, respiratory rate is 18, pulse of 70, and blood pressure 123/57. GENERAL: Awake, alert, oriented x3, in no acute distress. CARDIOVASCULAR: Irregular rhythm. No murmurs, rubs, or gallops. LUNGS: Clear to auscultation bilaterally. No wheezes, rales, or rhonchi. ABDOMEN: Soft, nontender. Bowel sounds normal. SKIN: Normal. NEURO: Cranial nerves 2 through 12 grossly intact. HEENT: Within normal limits. NECK: No masses. LABORATORY DATA: Sodium 141, potassium 4.1, calcium of 8.1, BUN of 22, creatinine of 0.9, bilirubin of 0.4, alk phos of 67, AST of 24, ALT of 19, iron of 22, TIBC of 194, percent sat of 11, and ferritin of 201. White blood cell count 6.4, hemoglobin of 8.9 at 1707 hours, at 0416 hours, it was 8.1, and platelets of 67. No GI tract imaging available for review. CT of the head done today shows periventricular small-vessel ischemic change and an 18-mm stable rounded area of low attenuation within the midright jai-cerebellum, this may represent an area of subacute or chronic ischemia, diffusion-weighted MRI may be helpful for more accurate characterization. No evidence of intracranial hemorrhage. PATIENT'S NAME: EVANGELINA PAREDES [facility] AGE: 81 Y [address] ROOM: [facility] [place], [place] [address] LOCATION: [facility] ADMIT DATE: 01/13/2017 Consultation DISCHARGE DATE: FAMILY PHYSICIAN: Harley Rodriguez MD ATTENDING PHYSICIAN: Kevyn Watkins ASSESSMENT AND PLAN: Rectal bleeding, anemia: It sounds to me as though the patient's rectal bleeding is most likely hemorrhoidal as her hemoglobin is stable and it went up from 8.1 to 8.9. She is on both Eliquis and Plavix therefore I expect some bleeding from hemorrhoids. She has never had a colonoscopy in the past and does have anemia. Her anemia is likely multifactorial for known renal mass. We discussed the possibility of colonoscopy today and she said she would consider proceeding if deemed necessary. Currently, she requires Plavix for recent stent and Eliquis for atrial fibrillation. I will plan to keep her on a clear liquid diet and colonoscopy can be done on Monday if the patient is willing to prep tomorrow. Dr. Will will be on-call for GI Service and therefore he will be discussing this with the patient tomorrow or comment to make a final plan. J MD REYNALDO LUNA/anu /[id number] d: 01/16/17 0147 t: 02/17/17 0844, CONSULTATION REPORT
--- NOTE | ~2017-01-13 | ENPV ---
Carotid Duplex Study Demographics Patient Name EVANGELINA PAREDES Date of Study 01/16/2017 Patient Number [id number] Gender Female Date of 1935 Age 81 Visit Number [id number] Height 63 Accession Number [id number] Weight 180 Referring Jennifer Sesay MD Physician Physician Physician Ordering Physician Roland Gaines MD Technical Project Lead Shaper Machine Hand Miroslava Posey [facility], [facility] Conclusions Summary The right internal carotid artery has moderate<50%, plaque and stenosis. The left internal carotid artery has mild, 1-39%, plaque and stenosis. The right vertebral artery is present with antegrade flow. The left vertebral artery is present with antegrade flow. Procedure Type of Study: Cerebral:Carotid, Carotid Doppler Bilateral. Indications for Study:CVA. Appropriate Use Criteria:6 Blood Pressure:Right arm 130/60 mmHg. Patient Status:Routine. Study Location:Inpatient Portable. Technical Quality:Adequate visualization. Velocities are measured in cm/s ; Diameters are measured in cm Carotid Right Measurements Carotid Left Measurements + +--------+--------+ + + + +--------+ --------+ + + !Location !PSV !EDV !Angle !%Stenosis ! !Location !PSV ! EDV !Angle !%Stenosis ! + +--------+--------+ + + + +--------+ --------+ + + !Prox CCA !91 !25 !60 ! ! !Prox CCA !104 ! 21 !60 ! ! + +--------+--------+ + + + +--------+ --------+ + + !Dist CCA !68 !21 !60 ! ! !Dist CCA !67 ! 19 !60 ! ! + +--------+--------+ + + + +--------+ --------+ + + !Prox ICA !82 !20 !60 ! ! !Prox ICA !79 ! 23 !46 ! ! + +--------+--------+ + + + +--------+ --------+ + + !Dist ICA !138 !45 !60 ! ! !Dist ICA !96 ! 36 !56 ! ! + +--------+--------+ + + + +--------+ --------+ + + !Prox ECA !60 ! !60 ! ! !Prox ECA !72 ! !60 ! ! + +--------+--------+ + + + +--------+ --------+ + + !Vertebral !60 ! !60 ! ! !Vertebral !84 ! !60 ! ! + +--------+--------+ + + + +--------+ --------+ + + !Subclavian !94 ! ! ! ! !Subclavian !100 ! ! ! ! + +--------+--------+ + + + +--------+ --------+ + + - There is antegrade vertebral flow noted on the right side. - There is antegrade verte bral flow noted on the left side. - Add'l Measurements:ICAPSV/CCAPSV 1.51.ICAEDV/CCAEDV 1.8. - Add'l Measurements:ICAPS V/CCAPSV 0.92.ICAEDV/CCAEDV 1.76. Impressions Right Impression Tortuous right internal carotid artery. Left Impression Tortuous left internal carotid artery. Signature dtt: JOHN SANTIAGO dtgreer: 01/16/17 0654 Physician Self Edit
[2017-01-13] MEDS ORDERED: ELIQUIS5 MG PO (19:47)
[2017-01-13] MEDS ORDERED: ZYLOPRIM300 MG PO ×2 (19:47→19:58)
[2017-01-13] MEDS ORDERED: PLAVIX75 MG PO (19:47)
[2017-01-13] MEDS ORDERED: ZEBETA10 MG PO (19:57)
[2017-01-13] MEDS ORDERED: LOTENSIN10 MG PO (19:57)
[2017-01-13] MEDS ORDERED: MEGARED OMEGA-1 EAC1 PO (19:58)
[2017-01-13] MEDS ORDERED: ZOCOR40 MG PO (19:58)
[2017-01-13] MEDS ORDERED: CELEBREX100 MG PO (20:00)
[2017-01-13] MEDS ORDERED: MULTIPLE VITAM1 EACH PO (20:00)
[2017-01-13] MEDS ORDERED: MELATONIN3 M2 PO (20:01)
--- NOTE | 2017-01-13 21:10 | NUR ---
81 Y/O FEMALE ADMITTED FOR HYPOXIA, CVA & RESPIRATORY FAILURE. PT WAS TRANSFERED FROM THE [facility]. PT RETURNED FROM [place] THIS LAST MONDAY PER PLANE, STATES SHE FELT FINE ON MONDAY & MONDAY BUT MONDAY SHE HAD SOME DIARRHEA AND DID NOT EAT WELL. PT FAMILY STATES THAT MONDAY NIGHT & MONDAY SHE WAS VERY UNSTEADY ON HER FEET. WED AT 2PM PT WENT TO SLEEP AND DID NOT AWAKEN UNTIL FAMILY TRIED TO WAKE HER MONDAY @ 2PM. MEDICAL & SURGICAL HISTORY - APPY & HAWA, 3 VESSEL CABG, 2 HEART CATHS & HAS 2 STENTS, PACEMAKER, BILAT CARPEL TUNNEL, BILAT TOTAL HIPS, HYSTER, BLADDER SLING. CAD, HIGH CHOL, HTN, EDEMA BILAT LEGS, SOB, ARTHRITIS, GERD, HEARTBURN, HEMORRHOIDS, URINARY URG & FREQ, NOCTURIA, STRESS INCONT, FREQ UTI'S. SEVERE HEADACHES THIS PAST MONTH. ALLERGY/ADV REACTION TO MORPHINE - HALLUCINATIONS & CONFUSION REPORT GIVEN TO PT PRIMARY CARE NURSE MIKIE VARELA
--- NOTE | 2017-01-14 07:35 | NUR ---
Significant Event: A&Ox3, VSS on room air. NIHSS=1. Slight slurred speech, comes and goes. Denies headache and pain. Transfers with 1PA to bathroom. tylenol given for abdominal pain. Excoriated labia and groins, open areas noted. Pleasant and cooperative with cares. rested well Follow up:
--- NOTE | 2017-01-14 09:55 | NUR ---
CONSULT RECEIVED, PER ROUTINE STROKE ORDERS. IF APPROPRIATE DIET EDUCATION WILL BE COMPLETED PRIOR TO DISCHARGE.
[2017-01-14 14:20] LABS: BASOPHIL % 0.2 %; EOSINOPHIL # 0.1 K/uL (0.0-0.5); EOSINOPHIL % 1.7 %; IMMATURE GRANULOCYTE % 0.4 %; LYMPHOCYTE # 0.6 K/uL (0.8-4.0); LYMPHOCYTE % 6.8 %; MCH 31.5 pg (27.0-34.0); MCHC 32.1 gm/dL (32.0-36.5); MCV 97.9 fl (83.0-98.0); MONOCYTE # 0.6 K/uL (0.0-1.0); MONOCYTE % 6.5 %; MPV 11.8 fl (9.4-12.4); NEUTROPHIL # (ANC) 7.1 K/uL (1.8-7.8); NEUTROPHIL % 84.4 %; NRBC % 0 /100WBC (0-0.00); RBC 2.86 M/uL (3.00-5.00); RDW-CV 15.4 % (11.9-14.6); WBC 8.4 K/uL (4.0-11.0)
[2017-01-14 14:22] LABS: PLATELET COUNT 59 K/uL (150-450)
[2017-01-14 14:58] LABS: ALBUMIN 2.4 gm/dL (3.5-5.0); ANION GAP 14.1 (10.0-19.0); CALCIUM 7.9 mg/dL (8.5-10.5); CREATININE 1.1 mg/dL (0.5-1.1); POTASSIUM 3.1 mMol/L (3.7-5.1); TOTAL BILIRUBIN 0.2 mg/dL (0.0-1.5); TOTAL PROTEIN 6.6 g/dL (6.0-8.4)
--- NOTE | 2017-01-14 16:43 | NUR ---
Significant Event: PT ALERT AND ORIENTED X3. PERRLA. EQUAL STRENGTH X4. NIH-SS=1 THIS SHIFT. SLIGHTLY SLURRED SPEECH AT TIMES. TRANSFERS WITH 1-ASSIST/GAIT BELT. VOIDS PER BATHROOM. HAS HAD DIARRHEA X2 TODAY PER PT REPORT. TOOK A SHOWER THIS MORNING PER MORTAR MIXER. DENIES ANY PAIN. VITAL SIGNS STABLE; ON ROOM AIR. PACEMAKER. Q6H ACCUCHECKS PER STROKE PROTOCOL. BILATERAL CALF PUMPS ON. IV TO L)FA INFUSING NORMAL SALINE AT TKO. CARDIAC DIET; FAIR APPETITE. HAS BEEN UP IN THE CHAIR MOST OF THE DAY. TROPONIN LEVELS HAVE BEEN ELEVATED THIS SHIFT-MD'S ARE AWARE OF THIS. EKG ORDERED THIS AFTERNOON DUE TO INCREASED LABS. FAMILY HAS BEEN AT BEDSIDE MOST OF THE SHIFT. Follow up: CONTINUE TO MONITOR.
[2017-01-14 17:10] LABS: ALBUMIN 2.4 gm/dL (3.5-5.0); ALK PHOS 77 IU/L (33-138); ALT 20 IU/L (12-78); AST 27 IU/L (10-40); MAGNESIUM 1.7 mg/dL (1.8-2.6); TOTAL PROTEIN 6.6 g/dL (6.0-8.4)
[2017-01-14 17:14] LABS: TOTAL BILIRUBIN 0.3 mg/dL (0.0-1.5)
[2017-01-14 20:40] LABS: BILIRUBIN URINE NEGATIVE (NEGATIVE); BLOOD URINE 50 /UL (NEGATIVE); COLOR URINE YELLOW (YELLOW); GLUCOSE URINE NEGATIVE (NEGATIVE); KETONE URINE NEGATIVE (NEGATIVE); LEUKOCYTES URINE 100 /UL (NEGATIVE); NITRITE URINE NEGATIVE (NEGATIVE); PROTEIN URINE 30 mg/dL (NEGATIVE); TURBIDITY URINE CLEAR (CLEAR); UROBILINOGEN URINE NORMAL (NORMAL)
[2017-01-14 20:53] LABS: BACTERIA URINE MODERATE (NEGATIVE); MUCUS URINE 1+ (NEGATIVE); YEAST URINE MODERATE (NEGATIVE)
[2017-01-15 04:30] LABS: BASOPHIL % 0.3 %; EOSINOPHIL # 0.1 K/uL (0.0-0.5); EOSINOPHIL % 1.4 %; HEMOGLOBIN 8.1 g/dL (10.0-15.0); IMMATURE GRANULOCYTE % 0.3 %; LYMPHOCYTE # 0.7 K/uL (0.8-4.0); LYMPHOCYTE % 11.5 %; MCH 31.3 pg (27.0-34.0); MCHC 32.4 gm/dL (32.0-36.5); MCV 96.5 fl (83.0-98.0); MONOCYTE # 0.7 K/uL (0.0-1.0); MONOCYTE % 11.5 %; MPV 12.5 fl (9.4-12.4); NEUTROPHIL # (ANC) 4.8 K/uL (1.8-7.8); NRBC % 0 /100WBC (0-0.00); PLATELET COUNT 67 K/uL (150-450); RBC 2.59 M/uL (3.00-5.00); RDW-CV 15.2 % (11.9-14.6); WBC 6.4 K/uL (4.0-11.0)
[2017-01-15 04:49] LABS: ALBUMIN 2.3 gm/dL (3.5-5.0); CALCIUM 8.1 mg/dL (8.5-10.5); CREATININE 0.9 mg/dL (0.5-1.1); TOTAL PROTEIN 6.1 g/dL (6.0-8.4)
[2017-01-15 04:50] LABS: ANION GAP 13.1 (10.0-19.0); POTASSIUM 4.1 mMol/L (3.7-5.1); TOTAL BILIRUBIN 0.4 mg/dL (0.0-1.5)
--- NOTE | 2017-01-15 05:16 | NUR ---
PT CONVERTED TO AFIB/RVR AT SHIFT CHANGE. ORDERS OBTAINED FOR DIGOXIN BOLUS AND ADDITIONAL TWO DOSES OF 250 MCG Q6H AFTER INITAL BOLUS. PT CONVERTED BACK TO SR APPROX 1 HOUR AFTER DIGOXIN ADMINISTRATION. NIHSS REMAINS ONE DUE TO INTERMITTENT SLURRED SPEECH; OTHERWISE, NEURO ASSESSEMENT IS INTACT. PT HAS BEEN ON 2LNC SINCE CARDIAC RHYTHMN CHANGED TO AFIB; ATTEMPTS TO WEAN THROUGHOUT NIGHT WERE UNSUCCESSFUL DUE TO DESATURATION WHILE ASLEEP. BM X2 THIS SHIFT; NEGATIVE FOR C-DIFF; ADDITIONAL LABS PENDING. NO NEW SKIN ISSUES. PIV REMAINS INTACT AND PATENT; IV TUBING CHANGED THIS SHIFT. PT CONTINUES TO BE 1PA/SBA WHEN AMBULATING. JUAN C PAREDES RN
--- NOTE | 2017-01-15 10:34 | NUR ---
Significant Event: PT ALERT AND ORIENTED X3. PERRLA. NIH=1 THIS SHIFT. SPEECH SLIGHTLY SLURRED AT TIMES. EQUAL STRENGTH X4. TRANSFERS WITH 1-ASSIST/GAIT BELT. VOIDS PER BATHROOM. DIARRHEA NOTED X1 THIS MORNING. HAS BEEN UP IN THE CHAIR SINCE BREAKFAST. PACEMAKER. Q6H ACCUCHECKS. BILATERAL CALF PUMPS ON. IV TO L)FA INFUSING IV FLUIDS AT TKO. DENIES ANY PAIN. HEAD CT AND HEART ECHO DONE THIS MORNING. FAMILY HAS BEEN AT BEDSIDE. WILL HAND OFF CARES TO LUCY RODRIGUEZ RN THIS MORNING. Follow up: CONTINUE TO MONITOR.
[2017-01-15 13:03] LABS: ABSOLUTE NEUTROPHIL CT (ANC) 4.8 K/uL (1.8-7.8); BANDED NEUTROPHILS % 15 %; LYMPHOCYTE # 0.8 K/uL (0.8-4.0); LYMPHOCYTE % 13 %; MONOCYTE # 0.7 K/uL (0.0-1.0); SEGMENTED NEUTROPHIL # 3.8 K/uL (1.8-7.8); SEGMENTED NEUTROPHIL % 60 %
--- NOTE | 2017-01-15 15:58 | NUR ---
Pt up in recliner. To bathroom with one assist and gaitbelt. PERRLA. No calls from tele. Neuro assessment intact. Denies pain/discomfort. Family at bedside.
[2017-01-15 17:13] LABS: HEMATOCRIT 27.8 % (30.0-46.0); HEMOGLOBIN 8.9 g/dL (10.0-15.0)
--- NOTE | 2017-01-16 03:47 | NUR ---
Significant Event: PATIENT IS ALERT AND ORIENTED. VERY PLEASANT. UP WITH STANDBY ASSISTANCE. NO SKIN ISSUES NOTED. ACCU CHECKS Q6H PER CVA PROTOCOL. NIHSS 1. IV SITE TO LEFT FOREARM. O2 AT 3L PER NC. PATIENT BECOMES VERY SHORT OF AIR WITH ACTIVITY. CHRONIC UTI'S. HX OF A.FIB WITH RVR THIS HOSPITAL STAY. NO CALLS ON TELE DURING THIS SHIFT. GI CONSULT SAW PATIENT LAST NIGHT FOR DECREASED HBG. LAST WAS 8.9. PATIENT DOES HAVE BLEEDING HEMMORHOIDS. LOOSE STOOLS. Follow up:
[2017-01-16 03:59] LABS: BASOPHIL % 0.4 %; EOSINOPHIL # 0.1 K/uL (0.0-0.5); EOSINOPHIL % 1.9 %; HEMATOCRIT 26.4 % (30.0-46.0); HEMOGLOBIN 8.6 g/dL (10.0-15.0); IMMATURE GRANULOCYTE % 0.4 %; LYMPHOCYTE # 0.9 K/uL (0.8-4.0); LYMPHOCYTE % 13.5 %; MCH 31.4 pg (27.0-34.0); MCHC 32.6 gm/dL (32.0-36.5); MCV 96.4 fl (83.0-98.0); MONOCYTE # 0.8 K/uL (0.0-1.0); MONOCYTE % 12.3 %; NEUTROPHIL # (ANC) 4.9 K/uL (1.8-7.8); NEUTROPHIL % 71.5 %; NRBC % 0 /100WBC (0-0.00); PLATELET COUNT 73 K/uL (150-450); RBC 2.74 M/uL (3.00-5.00); RDW-CV 15.1 % (11.9-14.6); WBC 6.8 K/uL (4.0-11.0)
[2017-01-16 04:19] LABS: ALBUMIN 2.4 gm/dL (3.5-5.0); ANION GAP 12.3 (10.0-19.0); CALCIUM 8.6 mg/dL (8.5-10.5); POTASSIUM 4.3 mMol/L (3.7-5.1); TOTAL BILIRUBIN 0.5 mg/dL (0.0-1.5); TOTAL PROTEIN 6.5 g/dL (6.0-8.4)
--- NOTE | 2017-01-16 11:51 | NUR ---
Introduced self and CM role to Ashley and her daughter who was at bedside. Ashley and daughter tell me victoriano Ramirez lives at home in [place] and her son and his family live with her and help care for her. She does her own medications at home and plans on continuing to do so when she goes home. Ashley doesn't normally use a FWW or a cane to get around with at baseline, but has a FWW to use if she would need it. Daughter tells me that either herself or her brother will come and turkey picker Ashley to take her home when she is dismissed. No other questions, needs or concerns. CM to continue to follow and assist. Plan home.
--- NOTE | 2017-01-16 14:56 | NUR ---
Significant Event: PT A&O x3. VSS, on room air. IV patent. PT ambulates with gait belt and SBA. Denies pain. Encouraged to deep breath and cough. Shower this AM with therapy. Follow up: Possible dc to home tomorrow.
[2017-01-16 17:08] LABS: HEMATOCRIT 29.4 % (30.0-46.0); HEMOGLOBIN 9.4 g/dL (10.0-15.0)
[2017-01-17 04:13] LABS: BASOPHIL % 0.3 %; EOSINOPHIL # 0.1 K/uL (0.0-0.5); EOSINOPHIL % 2.1 %; HEMATOCRIT 26.8 % (30.0-46.0); HEMOGLOBIN 8.5 g/dL (10.0-15.0); IMMATURE GRANULOCYTE # 0.1 K/uL (0.0-0.3); LYMPHOCYTE # 1.2 K/uL (0.8-4.0); LYMPHOCYTE % 17.2 %; MCH 30.4 pg (27.0-34.0); MCHC 31.7 gm/dL (32.0-36.5); MCV 95.7 fl (83.0-98.0); MONOCYTE # 0.9 K/uL (0.0-1.0); MONOCYTE % 13.6 %; MPV 12.1 fl (9.4-12.4); NEUTROPHIL # (ANC) 4.4 K/uL (1.8-7.8); NEUTROPHIL % 65.8 %; NRBC % 0 /100WBC (0-0.00); RDW-CV 14.9 % (11.9-14.6); WBC 6.7 K/uL (4.0-11.0)
[2017-01-17 04:17] LABS: PLATELET COUNT 91 K/uL (150-450)
[2017-01-17 04:30] LABS: ALBUMIN 2.4 gm/dL (3.5-5.0); ANION GAP 11.9 (10.0-19.0); CALCIUM 8.9 mg/dL (8.5-10.5); POTASSIUM 3.9 mMol/L (3.7-5.1); TOTAL BILIRUBIN 0.6 mg/dL (0.0-1.5); TOTAL PROTEIN 6.7 g/dL (6.0-8.4)
--- NOTE | 2017-01-17 04:46 | NUR ---
Significant Event: Patient is alert and oriented x 3. Forgetful. Denies pain, numbness, or tingling. Moves spontaneously and follows commands. Equal strength throughout. 2+ pulses. PERRL. Paced. Slightly hypertensive (120s-130s). VSS. Afebrile. On room air during the day, wears oxygen at night. IV to left forearm SL. Intermittent antibiotics with no complications. SBA, gait belt. Bowel sounds active. No BM this shift. Voids per restroom. Urgency noted. Refused SCDs. NIHSS 1-slight aphasia. Follow up: refused colonoscopy, home today, NIHSS, alarms
--- NOTE | 2017-01-17 07:58 | NUR ---
PT SCREENED D/T LOS. EST NEEDS: [id number] KCALS, 78 GM PROTEIN, 1 ML/KCAL FLUIDS. EATING WELL. NO NUTRITION-RELATED DIAGNOSIS IDENTIFIED. WILL ASSIST NEEDED.
[2017-01-17 17:03] LABS: HEMATOCRIT 28.2 % (30.0-46.0); HEMOGLOBIN 9.2 g/dL (10.0-15.0)
--- NOTE | 2017-01-17 18:36 | NUR ---
Significant Event:VSS, A/O x 3, able to assist with ADL's. Forgetful, denies pain/numbness/tingling. Equal strength x 4. NIHSS 1 for slight aphasia. Tx with SBA of 1. Pt has urgency, voids in good amounts, continues on IV ATB's. Trend ox tonight. IV to L FA. No bloody stools. Follow up:Monitor, labs, consult with Dr. Read and Flaquita.
[2017-01-18 04:10] LABS: BASOPHIL % 0.5 %; EOSINOPHIL # 0.2 K/uL (0.0-0.5); EOSINOPHIL % 3.3 %; HEMATOCRIT 26.5 % (30.0-46.0); HEMOGLOBIN 8.5 g/dL (10.0-15.0); IMMATURE GRANULOCYTE # 0.1 K/uL (0.0-0.3); IMMATURE GRANULOCYTE % 1.5 %; LYMPHOCYTE # 1.3 K/uL (0.8-4.0); LYMPHOCYTE % 20.8 %; MCHC 32.1 gm/dL (32.0-36.5); MCV 96.7 fl (83.0-98.0); MONOCYTE # 0.6 K/uL (0.0-1.0); MONOCYTE % 10.7 %; MPV 12.1 fl (9.4-12.4); NEUTROPHIL # (ANC) 3.8 K/uL (1.8-7.8); NEUTROPHIL % 63.2 %; NRBC % 0 /100WBC (0-0.00); RBC 2.74 M/uL (3.00-5.00)
[2017-01-18 04:12] LABS: PLATELET COUNT 122 K/uL (150-450)
[2017-01-18 04:30] LABS: ALBUMIN 2.4 gm/dL (3.5-5.0); ANION GAP 13.9 (10.0-19.0); CALCIUM 8.6 mg/dL (8.5-10.5); CREATININE 0.9 mg/dL (0.5-1.1); POTASSIUM 3.9 mMol/L (3.7-5.1); TOTAL PROTEIN 6.6 g/dL (6.0-8.4)
[2017-01-18 04:39] LABS: TOTAL BILIRUBIN 0.4 mg/dL (0.0-1.5)
--- NOTE | 2017-01-18 05:30 | NUR ---
Significant Event: PATIENT IS ALERT AND ORIENTED X3. VSS. FOLLOWS COMMANDS. EQUAL MODERATE STRENGTH. PERRLA. PALE IN COLOR. PACEMAKER LEFT SUBCLAV. 2+ PULSES-NO EDEMA. ROOM AIR. CARDIAC DIET. LAST BM 01/17-BOWELS ACTIVE X4-USE [place] AFTER TOILETING. 1A GB. PIV IN LEFT FA WITH ZOSYN AT 27ML/HR. AFEBRILE. Follow up: MONITOR LABS.
--- NOTE | 2017-01-18 17:54 | NUR ---
Significant Event: Patient alert and oriented and moves extremities spontaneously with equal strength, AZAR and patient denies discomfort. Up to the bathroom with assist and use of a gait belt to void and ambulated in the hallway x 2. Patient has been up in the recliner all shift. Continues on IV Zosyn. Saline lock to her L) forearm. Follow up:
[2017-01-18 19:04] LABS: HEMATOCRIT 26.7 % (30.0-46.0); HEMOGLOBIN 8.5 g/dL (10.0-15.0)
[2017-01-19 04:53] LABS: BASOPHIL % 0.4 %; EOSINOPHIL # 0.2 K/uL (0.0-0.5); EOSINOPHIL % 2.8 %; HEMATOCRIT 27.4 % (30.0-46.0); HEMOGLOBIN 8.7 g/dL (10.0-15.0); IMMATURE GRANULOCYTE # 0.1 K/uL (0.0-0.3); IMMATURE GRANULOCYTE % 1.3 %; LYMPHOCYTE # 1.6 K/uL (0.8-4.0); LYMPHOCYTE % 21.8 %; MCH 31.1 pg (27.0-34.0); MCHC 31.8 gm/dL (32.0-36.5); MCV 97.9 fl (83.0-98.0); MONOCYTE # 0.7 K/uL (0.0-1.0); MONOCYTE % 10.1 %; MPV 11.4 fl (9.4-12.4); NEUTROPHIL # (ANC) 4.6 K/uL (1.8-7.8); NEUTROPHIL % 63.6 %; NRBC % 0 /100WBC (0-0.00); RDW-CV 15.2 % (11.9-14.6); WBC 7.2 K/uL (4.0-11.0)
[2017-01-19 05:02] LABS: PLATELET COUNT 164 K/uL (150-450)
[2017-01-19 05:17] LABS: ALBUMIN 2.5 gm/dL (3.5-5.0); ANION GAP 14.1 (10.0-19.0); CALCIUM 8.7 mg/dL (8.5-10.5); CREATININE 0.9 mg/dL (0.5-1.1); POTASSIUM 4.1 mMol/L (3.7-5.1); TOTAL PROTEIN 6.8 g/dL (6.0-8.4)
[2017-01-19 05:19] LABS: TOTAL BILIRUBIN 0.5 mg/dL (0.0-1.5)
--- NOTE | 2017-01-19 05:32 | NUR ---
Significant Event: PATIENT IS ALERT AND ORIENTED X3. FOLLOWS COMMANDS. VSS. PERRLA. EQUAL MODERATE STRENGTH. PACEMAKER-MURMUR. O2 REINITIATED THIS MORNING BY RT-2L WHILE SLEEPING. CARDIAC DIET-TAKES PILLS WHOLE WITH WATER. BOWELS ARE ACTIVE X4- LAST BM 01/18. UP WITH SBA AND GB. L) FA PIV-SL'D. DOES HAVE SLIGHT APHASIA. CONT OF BOWEL AND BLADDER-NO BLOODY STOOLS. [place] TO [place] AREA. Follow up:
[2017-01-19] MEDS ORDERED: ASPIRIN (CHILDR81 MG PO (10:40)
[2017-01-19] MEDS ORDERED: LIPITOR40 MG PO (10:42)
--- NOTE | 2017-01-19 12:17 | NUR ---
Significant Event:PT IS AAOX3. MODERATE STRENGTH. UP SBA. FOLLOWS COMMANDS. ON RA IN DAY. 2L AT NIGHT. PERIAREA IS RED AND EXCORIATED. IV REMOVED FROM LEFT FA. DC INSTRUCTION GIVEN AND TAKEN BY WC. Follow up:
== END 2017-01-19 12:20 | disposition disaster alternative care site (69) | DRG 682 ==
LOC: GNTU 19:20
PROVIDERS: Internal Medicine; Nurse Practitioner Family; ADMIT Family Medicine
DX: N17.9 Acute kidney failure, unspecified (principal); J96.01 Acute respiratory failure with hypoxia; D69.6 Thrombocytopenia, unspecified; I48.0 Paroxysmal atrial fibrillation; E86.0 Dehydration; D62 Acute posthemorrhagic anemia; N39.0 Urinary tract infection, site not specified; I12.9 Hypertensive chronic kidney disease with stage 1 through stage 4 chronic kidney disease, or unspecified chronic kidney disease; N18.3 Chronic kidney disease, stage 3 (moderate); E78.5 Hyperlipidemia, unspecified; E87.6 Hypokalemia; I25.10 Atherosclerotic heart disease of native coronary artery without angina pectoris; M15.9 Polyosteoarthritis, unspecified; G47.00 Insomnia, unspecified; N28.89 Other specified disorders of kidney and ureter; K21.9 Gastro-esophageal reflux disease without esophagitis; Z95.0 Presence of cardiac pacemaker; M10.9 Gout, unspecified; K64.9 Unspecified hemorrhoids; Z79.82 Long term (current) use of aspirin; D63.1 Anemia in chronic kidney disease; D50.9 Iron deficiency anemia, unspecified; B96.20 Unspecified Escherichia coli [E. coli] as the cause of diseases classified elsewhere; Z86.73 Personal history of transient ischemic attack (TIA), and cerebral infarction without residual deficits
CPT/HCPCS: C9113; J0696; J1160; J1956; J2543; J3475; J7030; J7040; J7050